=== PATIENT | male | born 1985 | race Caucasian/White ===

== ENCOUNTER 2020-03-15 11:19 | Emergency (ER) | payer BC ==
[~2020-03-15] VITALS: Ht 170.2 cm; Wt 74.8 kg
[2020-03-15 11:23] VITALS: BP 148/91
== END 2020-03-15 13:25 | disposition home or self-care (01) ==
LOC: ER 11:19
DX: S61.213A Laceration without foreign body of left middle finger without damage to nail, initial encounter (principal); W26.0XXA Contact with knife, initial encounter; Y93.89 Activity, other specified; Y92.89 Other specified places as the place of occurrence of the external cause; Y99.8 Other external cause status